=== PATIENT | female | born 1980 | race Asian ===

== ENCOUNTER → 2016-06-07 | Emergency (ER) | payer OTHER ==
[~2016-06-07] VITALS: Ht 162.6 cm; Wt 100.0 kg
[~2016-06-07] MED LIST: METF500T4 PO
[2016-06-07 21:37] LABS: GLUCOSE,POINT OF CARE 142 MG/DL (70-110)
[2016-06-07 21:42] VITALS: BP 135/82
== END | disposition home or self-care (01) ==
LOC: EMS 20:44
DX: F32.9 Major depressive disorder, single episode, unspecified (principal); E11.9 Type 2 diabetes mellitus without complications
CPT/HCPCS: 82962; 99283

== ENCOUNTER 2023-08-16 14:35 | Inpatient (IN) | payer OTHER ==
[~2023-08-16] VITALS: Ht 162.6 cm; Wt 99.4 kg
[~2023-08-16 14:35] MED LIST changes: +METF-1211 PO; -METF500T4 PO
[2023-08-16 15:53] LABS: BASOPHILS % (AUTO) 0.8 % (0.0-2.0); EOSINOPHILS % (AUTO) 2.7 % (1.0-6.0); HEMATOCRIT 40.8 % (36-46); HEMOGLOBIN 13.5 g/dL (12.0-16.0); LYMPHOCYTES # (AUTO) 2.1 K/uL (1.0-4.8); MEAN CORPUSCULAR HEMOGLOBIN 28.2 pg (26.0-34.0); MEAN CORPUSCULAR HGB CONC 33.1 G/dL (31.0-37.0); MEAN CORPUSCULAR VOLUME 85 fL (80-100); MONOCYTES # (AUTO) 0.4 K/uL (0.1-1.0); MONOCYTES % (AUTO) 6.1 % (2.0-9.0); NEUTROPHILS # (AUTO) 4.2 K/uL (1.8-7.7); NEUTROPHILS % (AUTO) 60.4 % (40.0-70.0); PLATELET COUNT (AUTO) 237 K/uL (150-450); RED BLOOD CELL COUNT(AUTO) 4.78 MIL/uL (4.00-5.20); RED CELL DISTRIBUTION WIDTH 14.5 % (11.5-14.5)
[2023-08-16] MEDS: LORazepam 1 MG TABLET PO ONE (16:01)
[2023-08-16] MEDS: RisperiDONE 1 MG TABLET PO ONE (16:01)
[2023-08-16 16:02] LABS: ANION GAP 9 mmol/L (8-16); CALCIUM, TOTAL 9.2 mg/dL (8.8-10.5); CARBON DIOXIDE 27 mmol/L (22-29); CHLORIDE 100 mmol/L (98-107); CREATININE 0.69 mg/dL (0.60-1.30); GLOMERULAR FILTR. RATE CALC > 60 mL/min (>60); GLUCOSE,RANDOM 256 mg/dL (70-110); SODIUM SERUM 136 mmol/L (136-145); UREA NITROGEN, BLOOD 15 mg/dL (7-18)
[2023-08-16 16:08] LABS: COVID AG,FIA SOURCE NASAL SWAB
[2023-08-16 16:40] LABS: ALCOHOL, URINE DRUG SCREEN NEGATIVE (NEGATIVE); AMPHET/METH SCREEN,URINE NEGATIVE (NEGATIVE); BARBITURATE SCREEN, URINE NEGATIVE (NEGATIVE); BENZODIAZEPINES SCREEN,URINE NEGATIVE (NEGATIVE); CANNABINOID SCREEN,URINE NEGATIVE (NEGATIVE); COCAINE SCREEN,URINE NEGATIVE (NEGATIVE); METHADONE SCREEN, URINE NEGATIVE (NEGATIVE); OPIATE SCREEN,URINE NEGATIVE (NEGATIVE); PHENCYCLIDINE SCREEN,URINE NEGATIVE (NEGATIVE)
[2023-08-16 16:53] LABS: SARS-COV2 (COVID) ANTIGEN,FIA Negative (Negative)
[2023-08-16] MEDS: INSULIN REGULAR, HUMAN 100 UNITS/ML SQ ONE (17:54)
[2023-08-16] MEDS ORDERED: QUEtiapine FUMARATE 100 MG TABLET PO PRN (18:15)
[2023-08-16] MEDS ORDERED: LORazepam 2 MG TABLET PO PRN (18:15)
[2023-08-16] MEDS ORDERED: RISP1TAB48 PO (18:20)
[2023-08-16] MEDS ORDERED: METF-446 PO (18:20)
[2023-08-16] MEDS ORDERED: GLIP10TA9 PO (18:20)
[2023-08-16] MEDS ORDERED: LIRA0.6P SQ (18:20)
[2023-08-16] MEDS ORDERED: RISP0.2515 PO (18:20)
[2023-08-16 22:00] VITALS: BP 119/73; PULSE 80; RESP 18; TEMP 97.7; O2SAT 98
[2023-08-17] MEDS ORDERED: PNEUMOCOCCAL VACCINE POLYVALENT 0.5 ML SYRINGE [PPSV23] IM. ONE (04:15)
[2023-08-17] MEDS ORDERED: DEXTROSE 50%-WATER 25 GM/50 ML SYRINGE IVP PRN ×2 (06:00→14:15)
[2023-08-17 06:30] LABS: BASOPHILS % (AUTO) 1.1 % (0.0-2.0); EOSINOPHILS % (AUTO) 4.1 % (1.0-6.0); HEMATOCRIT 36.8 % (36-46); HEMOGLOBIN 12.3 g/dL (12.0-16.0); LYMPHOCYTES # (AUTO) 2.2 K/uL (1.0-4.8); LYMPHOCYTES % (AUTO) 38.3 % (22.0-44.0); MEAN CORPUSCULAR HEMOGLOBIN 28.6 pg (26.0-34.0); MEAN CORPUSCULAR HGB CONC 33.4 G/dL (31.0-37.0); MEAN CORPUSCULAR VOLUME 86 fL (80-100); MONOCYTES # (AUTO) 0.4 K/uL (0.1-1.0); MONOCYTES % (AUTO) 7.8 % (2.0-9.0); NEUTROPHILS # (AUTO) 2.7 K/uL (1.8-7.7); NEUTROPHILS % (AUTO) 48.7 % (40.0-70.0); PLATELET COUNT (AUTO) 206 K/uL (150-450); RED CELL DISTRIBUTION WIDTH 14.8 % (11.5-14.5); WHITE BLOOD COUNT (AUTO) 5.6 K/uL (4.5-11.0)
[2023-08-17 06:30] LABS: GLUCOMETER DEV NAME(LOC) 3EX.2; GLUCOSE,POINT OF CARE 214 MG/DL (70-110)
[2023-08-17] MEDS: INSULIN LISPRO 100 UNITS/ML SQ PRN ×2 (06:34→21:18)
[2023-08-17 06:41] LABS: HEMOGLOBIN A1C 7.9 % (3.8-5.6)
[2023-08-17 07:07] LABS: ALANINE AMINOTRANSFERASE 37 U/L (12-78); ALBUMIN 2.9 g/dL (3.4-5.0); ALKALINE PHOSPHATASE 82 U/L (46-116); ANION GAP 8 mmol/L (8-16); ASPARTATE AMINOTRANSFERASE 23 U/L (15-37); BILIRUBIN,TOTAL 0.5 mg/dL (0.1-1.0); CALCIUM, TOTAL 8.7 mg/dL (8.8-10.5); CARBON DIOXIDE 30 mmol/L (22-29); CHLORIDE 101 mmol/L (98-107); CHOL/HDL RATIO 4.8 (3.9-5.7); CHOLESTEROL 173 mg/dL (131-200); CREATININE 0.65 mg/dL (0.60-1.30); GLOMERULAR FILTR. RATE CALC > 60 mL/min (>60); GLUCOSE,RANDOM 224 mg/dL (70-110); HDL CHOLESTEROL 36 mg/dL (40-60); LDL CHOL (CALC.) 85 mg/dL (0-130); POTASSIUM 3.7 mmol/L (3.5-5.1); SODIUM SERUM 139 mmol/L (136-145); THYROID STIMULATING HORMONE 1.64 uIU/mL (0.36-3.74); TOTAL PROTEIN, SERUM 6.7 g/dL (6.4-8.2); TRIGLYCERIDES 262 mg/dL (15-150); UREA NITROGEN, BLOOD 14 mg/dL (7-18)
[2023-08-17 11:35] LABS: GLUCOMETER DEV NAME(LOC) 3E.I 2; GLUCOSE,POINT OF CARE 288 MG/DL (70-110)
[2023-08-17 12:26] LABS: PH,URINE DRUG SCREEN 6.5 (5.0-8.0)
[2023-08-17 12:27] LABS: APPEARANCE,URINE CLEAR (CLEAR); BILIRUBIN,URINE NEGATIVE (NEGATIVE); COLOR,URINE LIGHT YELLOW (YELLOW); GLUCOSE, URINE (UA) >=1000 mg/dL (NEGATIVE); KETONES,URINE NEGATIVE (NEGATIVE); LEUKOCYTE ESTERASE ,URINE NEGATIVE (NEGATIVE); NITRATE,URINE NEGATIVE (NEGATIVE); OCCULT BLOOD,URINE NEGATIVE (NEGATIVE); PH,URINE 6.5 (5.0-8.0); PROTEIN,URINE NEGATIVE (NEGATIVE); SPECIFIC GRAVITIY, URINE 1.014 (1.003-1.030)
[2023-08-17 12:34] LABS: ALCOHOL, URINE DRUG SCREEN NEGATIVE (NEGATIVE); AMPHET/METH SCREEN,URINE NEGATIVE (NEGATIVE); BARBITURATE SCREEN, URINE NEGATIVE (NEGATIVE); BENZODIAZEPINES SCREEN,URINE NEGATIVE (NEGATIVE); CANNABINOID SCREEN,URINE NEGATIVE (NEGATIVE); COCAINE SCREEN,URINE NEGATIVE (NEGATIVE); METHADONE SCREEN, URINE NEGATIVE (NEGATIVE); OPIATE SCREEN,URINE NEGATIVE (NEGATIVE); PHENCYCLIDINE SCREEN,URINE NEGATIVE (NEGATIVE)
[2023-08-17 13:07] LABS: BACTERIA,URINE None Seen /HPF (None Seen); RBC,URINE 0-2 /HPF (0-2); SQUAMOUS EPITHELIAL CELL,UR Rare /LPF (None Seen); WBC,URINE None Seen /HPF (0-5)
[2023-08-17] MEDS: CITALOPRAM HYDROBROMIDE 20 MG TABLET PO SCH (13:38)
[2023-08-17] MEDS: RisperiDONE 0.5 MG TABLET PO SCH (13:38)
[2023-08-17 13:49] VITALS: BP 116/62; PULSE 95; RESP 16; TEMP 98.2; O2SAT 95
[2023-08-17] MEDS ORDERED: MAGNESIUM HYDROXIDE SUSPENSION 30 ML UDCUP PO PRN ×2 (14:15)
[2023-08-17] MEDS ORDERED: LOPERAMIDE HCL 2 MG CAPSULE PO PRN ×2 (14:15)
[2023-08-17] MEDS ORDERED: MAG HYDROX/ALUMINUM HYD/SIMETH ES 30 ML SUSPENSION UDCUP PO PRN ×2 (14:15)
[2023-08-17] MEDS ORDERED: CloNIDine HCL 0.1 MG TABLET PO PRN ×2 (14:15)
[2023-08-17] MEDS ORDERED: NICOTINE 14 MG/24 HOUR PATCH TD PRN ×2 (14:15)
[2023-08-17] MEDS ORDERED: GuaiFENesin/D-METHORPHAN [SUGAR-FREE] 200-20MG/10 ML SYRUP UDCUP PO PRN ×2 (14:15)
[2023-08-17] MEDS ORDERED: ALBUTEROL SULFATE HFA 90 MCG/PUFF 8 GM INHALER IH PRN ×2 (14:15)
[2023-08-17] MEDS ORDERED: DOCUSATE SODIUM 100 MG CAPSULE PO PRN ×2 (14:15)
[2023-08-17] MEDS ORDERED: IBUPROFEN 400 MG TABLET PO PRN ×2 (14:15)
[2023-08-17] MEDS ORDERED: ONDANSETRON HCL 4 MG TABLET PO PRN ×2 (14:15)
[2023-08-17] MEDS ORDERED: PETROLATUM,WHITE 28 GM JELLY TP PRN ×2 (14:15)
[2023-08-17] MEDS ORDERED: ACETAMINOPHEN 325 MG TABLET PO PRN ×2 (14:15)
[2023-08-17] MEDS: MetFORMIN HCL 500 MG TABLET PO SCH (16:22)
[2023-08-17] MEDS: GlipiZIDE 10 MG TABLET PO SCH (16:23)
[2023-08-17] MEDS ORDERED: MetFORMIN HCL 500 MG TABLET PO SCH (17:30)
[2023-08-17 18:40] LABS: GLUCOMETER DEV NAME(LOC) 3E.I 2; GLUCOSE,POINT OF CARE 290 MG/DL (70-110)
[2023-08-17 20:20] LABS: GLUCOMETER DEV NAME(LOC) 3EX.2; GLUCOSE,POINT OF CARE 251 MG/DL (70-110)
[2023-08-17 20:51] VITALS: BP 142/81; PULSE 83; RESP 18; TEMP 97.8
[2023-08-17] MEDS: RisperiDONE 1 MG TABLET PO SCH (21:01)
[2023-08-18 05:30] LABS: GLUCOMETER DEV NAME(LOC) 3EX.2; GLUCOSE,POINT OF CARE 149 MG/DL (70-110)
[2023-08-18 08:22] LABS: HEMOGLOBIN A1C 7.9 % (3.8-5.6)
[2023-08-18 08:38] LABS: THYROID STIMULATING HORMONE 1.62 uIU/mL (0.36-3.74)
[2023-08-18 08:52] LABS: CHOL/HDL RATIO 4.6 (3.9-5.7)
[2023-08-18 09:34] VITALS: BP 100/56; PULSE 63; RESP 16; TEMP 98.1; O2SAT 95
[2023-08-18 11:55] LABS: GLUCOMETER DEV NAME(LOC) 3E.I 2; GLUCOSE,POINT OF CARE 153 MG/DL (70-110)
[2023-08-18 17:20] LABS: GLUCOMETER DEV NAME(LOC) 3E.I 2; GLUCOSE,POINT OF CARE 197 MG/DL (70-110)
[2023-08-18 20:40] LABS: GLUCOMETER DEV NAME(LOC) 3EX.2; GLUCOSE,POINT OF CARE 206 MG/DL (70-110)
[2023-08-18] MEDS: ZOLPIDEM TARTRATE 10 MG TABLET PO PRN (21:21)
[2023-08-18 22:55] VITALS: BP 119/73; PULSE 78; RESP 18; TEMP 97.8; O2SAT 97
[2023-08-19 05:41] LABS: GLUCOMETER DEV NAME(LOC) 3EX.2; GLUCOSE,POINT OF CARE 170 MG/DL (70-110)
[2023-08-19 09:28] VITALS: BP 111/67; PULSE 79; RESP 18; TEMP 98.4; O2SAT 95
[2023-08-19 11:25] LABS: GLUCOMETER DEV NAME(LOC) 3EX.2; GLUCOSE,POINT OF CARE 269 MG/DL (70-110)
[2023-08-19] MEDS ORDERED: CITA-144 PO ×2 (14:47→16:31)
[2023-08-19 16:20] LABS: GLUCOMETER DEV NAME(LOC) 3EX.2; GLUCOSE,POINT OF CARE 187 MG/DL (70-110)
[2023-08-19] MEDS ORDERED: RISP-31 PO (16:31)
[2023-08-19] MEDS ORDERED: GLIP10TA10 PO (16:31)
[2023-08-19] MEDS ORDERED: RISP0.5T80 PO (16:31)
[2023-08-19] MEDS ORDERED: METF-1211 PO (16:31)
== END 2023-08-19 17:13 | disposition home or self-care (01) | DRG 885 ==
LOC: EMS 14:36 → 3EI 22:10
PROVIDERS: ADMIT Psychiatry & Neurology Psychiatry; ATTEND Psychiatry & Neurology Psychiatry
PROC: GZHZZZZ Group Psychotherapy (ICD-10-PCS; principal; 2023-08-17)
PROC: GZ56ZZZ Individual Psychotherapy, Supportive (ICD-10-PCS; 2023-08-17)
DX: F25.1 Schizoaffective disorder, depressive type (principal); E11.65 Type 2 diabetes mellitus with hyperglycemia; R45.851 Suicidal ideations; E66.9 Obesity, unspecified; F41.9 Anxiety disorder, unspecified; Z20.822 Contact with and (suspected) exposure to COVID-19; G47.00 Insomnia, unspecified; Z91.119 Patient's noncompliance with dietary regimen due to unspecified reason; Z79.4 Long term (current) use of insulin; Z79.899 Other long term (current) drug therapy; Z91.51 Personal history of suicidal behavior; Z68.37 Body mass index [BMI] 37.0-37.9, adult
CPT/HCPCS: 80048; 80053; 80061; 80307; 81001; 82962; 83036; 84443; 84703; 85025; 99285; G0480; J1815